=== PATIENT | female | born 1960 | race Caucasian/White ===

== ENCOUNTER 2019-06-02 18:44 | Emergency (ER) | payer BC ==
[~2019-06-02] VITALS: Ht 154.9 cm; Wt 76.4 kg
[2019-06-02] MEDS ORDERED: LIPI20TA PO (18:55)
[2019-06-02] MEDS ORDERED: RANI15TA PO (18:56)
[2019-06-02] MEDS ORDERED: MORPHINE 4 MG/ML 1ML VIAL/SYRINGE (J2270) IV ONE (19:00)
--- NOTE | 2019-06-02 20:36 | REPVR ---
PROCEDURE INFORMATION: Exam: XR Left Knee Exam date and time: 06/02/2019 6:54 PM Clinical history: 58 years old, female; Pain; Left; Patient HX: Fell on knee and heard a "pop"; Additional info: Trauma TECHNIQUE: Imaging protocol: XR Left knee. Views: 4 or more views. COMPARISON: No relevant prior studies available. FINDINGS: Bones/joints: Acute fracture of the lateral tibial plateau. Osteoporosis. Suprapatellar joint effusion with a fat fluid level consistent with a fracture. Soft tissues: Normal. IMPRESSION: 1. Acute fracture of the lateral tibial plateau. 2. Suprapatellar joint effusion with a fat fluid level consistent with a fracture. Electronically signed by: Jayson Westfall On 06/02/2019 20:35:57 PM
--- NOTE | 2019-06-02 21:41 | REPVR ---
PROCEDURE INFORMATION: Exam: CT Left Lower Extremity Without Contrast, Knee Exam date and time: 06/02/2019 9:04 PM Clinical history: 58 years old, female; Injury or trauma; Fall; Initial encounter; Fracture, traumatic; Other: Plataue; Tibia; Left; Additional info: Eval tib plateau FX per ortho TECHNIQUE: Imaging protocol: CT of the Left lower extremity without contrast was performed. Exam focused on the knee. Radiation optimization: All CT scans at this facility use at least one of these dose optimization techniques: automated exposure control; mA and/or kV adjustment per patient size (includes targeted exams where dose is matched to clinical indication); or iterative reconstruction. COMPARISON: CR Knee, complete LEFT 06/02/2019 7:40 PM FINDINGS: Bones/joints: Impaction fracture of the lateral tibial plateau with greatest impaction in the central tibial plateau. There is depression of articular surfaces of approximately 6 mm with fracture lines radiating to the periphery anteriorly, posteriorly and laterally. Fracture lines extend into the lateral aspect of the tibial spines. There is only very slight offset of the fractures involving the lateral tibial metaphysis. Lipohemarthrosis of the knee joint. Soft tissues: Normal. IMPRESSION: 1. Intra-articular impaction fracture of the central lateral tibial plateau with depression of articular fragments up to 6 mm. Very slightly displaced fracture lines extend to the periphery in the lateral tibial metaphysis. 2. Moderate lipohemarthrosis of the knee joint. Electronically signed by: Shawn Diamond On 06/02/2019 21:40:46 PM
[2019-06-02] MEDS ORDERED: OXYCODONE/APAP 5MG/325MG(BULK FOR ED) 1 TABLET PO ONE (21:45)
[2019-06-02] MEDS ORDERED: PERC5TAB12 PO (21:55)
[2019-06-02] MEDS ORDERED: NS 1,000 ML IV SCH (22:04)
[2019-06-02] MEDS ORDERED: ONDANSETRON 4MG/2ML VIAL (J2405) IV ONE (22:15)
[2019-06-02 22:21] LABS: BASO # 0.1 10^3/uL (0.0-0.2); BASO % 0.4 % (0.0-1.0); EOS % 0.2 % (0.0-3.0); HEMATOCRIT 42.7 % (36.0-47.0); LYMPH # 2.8 10^3/uL (1.5-5.0); LYMPH % 19.4 % (24.0-44.0); MEAN CORPUSCULAR HEMOGLOBIN 30.4 pg (27.0-33.0); MEAN CORPUSCULAR HGB CONC 32.8 g/dl (32.0-36.5); MEAN CORPUSCULAR VOLUME 92.8 fl (80.0-96.0); MONO # 0.8 10^3/uL (0.0-0.8); MONO % 5.6 % (0.0-5.0); NEUTROPHILS # 10.5 10^3/uL (1.5-8.5); PLATELET COUNT, AUTOMATED 225 10^3/uL (150-450); WHITE BLOOD COUNT 14.3 10^3/uL (4.0-10.0)
[2019-06-02 22:51] LABS: BLOOD UREA NITROGEN 10 MG/DL (7-18); CALCIUM LEVEL 8.9 MG/DL (8.5-10.1); CARBON DIOXIDE LEVEL 25 MEQ/L (21-32); CHLORIDE LEVEL 105 MEQ/L (98-107); CK-MB VALUE MASS 1.2 NG/ML (<3.6); CPK CREATINE PHOSPHOKINASE 229 U/L (26-192); CREATININE FOR GFR 0.95 MG/DL (0.55-1.30); GLOMERULAR FILTRATION RATE > 60.0 (>51); GLUCOSE, FASTING 122 MG/DL (70-100); MAGNESIUM LEVEL 1.9 MG/DL (1.8-2.4); MB/CK RELATIVE INDEX 0.52 (< OR =4); POTASSIUM SERUM 3.5 MEQ/L (3.5-5.1); SODIUM LEVEL 139 MEQ/L (136-145); TROPONIN I < 0.02 NG/ML (< 0.10)
[2019-06-02 23:22] VITALS: BP 157/90
--- NOTE | 2019-06-03 01:40 | REP ---
Clinical: Trauma. Technique: AP and lateral views of the left tibia / fibula. Findings: Lateral view best demonstrates soft tissue swelling with joint effusion and fat-fluid level. There is evidence for lateral tibial plateau fracture. Remainder examination appears normal. Impression: Tibial plateau fracture with swelling and effusion. Electronically Signed by Pedro Bhakta MD 06/03/2019 01:31 A
--- NOTE | 2019-06-03 16:28 | ECGEPIP ---
[facility] - ED Test Date: 2019-06-02 Pat Name: SANTY INTERIANO Department: Room: - Gender: Female Flight Operations Specialist: terrence varner : 1960 Requested By: KELLIE Barbour Order Number: [id number] Reading MD: Holly Santiago Measurements Intervals [place]lap Rate: 84 P: 46 ME: 174 QRS: -17 QRSD: 94 T: -21 QT: 427 QTc: 505 Interpretive Statements SINUS RHYTHM INCOMPLETE RIGHT BUNDLE BRANCH BLOCK MODERATE VOLTAGE CRITERIA FOR LVH, CONSIDER NORMAL VARIANT NONSPECIFIC T-WAVE ABNORMALITY NO PRIOR Electronically Signed on 06-03-2019 16:28:36 EST by Holly Santiago
== END 2019-06-02 23:51 | disposition home or self-care (01) ==
LOC: M ED 18:44
DX: S82.142A Displaced bicondylar fracture of left tibia, initial encounter for closed fracture (principal); S82.102A Unspecified fracture of upper end of left tibia, initial encounter for closed fracture; W01.0XXA Fall on same level from slipping, tripping and stumbling without subsequent striking against object, initial encounter; Y92.018 Other place in single-family (private) house as the place of occurrence of the external cause; M25.062 Hemarthrosis, left knee; I45.19 Other right bundle-branch block; Z91.013 Allergy to seafood; Z79.899 Other long term (current) drug therapy
CPT/HCPCS: 73564; 73590; 73700; 80048; 82550; 82553; 83735; 84439; 84443; 84484; 85025; 93005; 93041; 94760; 96374; 96375; 99285; J2270; J2405

== ENCOUNTER 2019-06-07 10:09 | Day surgery (SDC) | payer BC ==
[~2019-06-07] VITALS: Ht 154.9 cm; Wt 77.9 kg
[~2019-06-07 10:09] MED LIST: LIDOCAINE 1% MDV 20ML VIAL SQ PRN; LIPI20TA PO; LR 1,000 ML IV ONE; PERC5TAB12 PO; RANI15TA PO; ceFAZolin SOD 2 GM in IV 1 EA IV ONE
[2019-06-07] MEDS ORDERED: ASPI325T57 PO (11:35)
[2019-06-07] MEDS ORDERED: MIDAZOLAM INJ 2 MG/2 ML VIAL (J2250) As Ordered ONE ×2 (13:19→13:27)
[2019-06-07] MEDS ORDERED: BUPIVACAINE HCL 0.25% 10 ML VIAL As Ordered ONE (13:19)
[2019-06-07] MEDS ORDERED: fentaNYL 100 MCG/2 ML INJECTION (J3010) As Ordered ONE ×3 (13:19→15:11)
[2019-06-07] MEDS ORDERED: LIDOCAINE PRES-FREE 2% 10ML AMP As Ordered ONE (13:26)
[2019-06-07] MEDS ORDERED: PROPOFOL 200 MG/20 ML VIAL As Ordered ONE (13:26)
[2019-06-07] MEDS ORDERED: LABETALOL HCL 100 MG/20 ML VIAL As Ordered ONE ×2 (15:34→17:27)
[2019-06-07] MEDS ORDERED: HYDROmorphone HCL 2 MG/ML 1ML VIAL (J1170) As Ordered ONE (15:52)
[2019-06-07] MEDS ORDERED: fentaNYL 100 MCG/2 ML INJECTION (J3010) IV PRN (16:45)
[2019-06-07] MEDS ORDERED: ONDANSETRON 4MG/2ML VIAL (J2405) IV PRN (16:45)
[2019-06-07] MEDS ORDERED: HYDROMORPHONE HCL 0.5 MG/ 0.5 ML SYRINGE (J1170 PER 1) IV PRN (16:45)
[2019-06-07] MEDS ORDERED: oxyCODONE 5MG TAB PO PRN ×3 (16:45→17:00)
[2019-06-07] MEDS ORDERED: METOCLOPRAMIDE INJ 10MG/2ML VIAL (J2765) IV PRN (16:45)
[2019-06-07] MEDS ORDERED: LR 1,000 ML IV SCH (16:45)
--- NOTE | 2019-06-07 16:46 | REP ---
Left knee series: Four views. History: Left tibial plateau fracture. Intraoperative imaging. 3 minutes 22 seconds of fluoroscopy time is reported. Findings: A sequence of four last image hold fluoroscopically obtained spot radiographs of the knee document open reduction internal fixation for tibial plateau fracture. Electronically Signed by Jaron Sumner MD 06/07/2019 04:37 P
[2019-06-07] MEDS ORDERED: MORPHINE 2 MG/ML 1ML VIAL (J2270) IV PRN (17:00)
[2019-06-07 17:30] VITALS: BP 175/95
[2019-06-07] MEDS ORDERED: LABETALOL HCL 100 MG/20 ML VIAL IV SCH (18:00)
[2019-06-07 18:40] VITALS: BP 170/88
--- NOTE | 2019-06-08 08:36 | RO ---
DATE OF PROCEDURE: 06/07/2019 PREOPERATIVE DIAGNOSIS: Left tibial plateau split depression fracture. POSTOPERATIVE DIAGNOSIS: Left lateral tibial plateau split depression fracture with meniscal tear. PROCEDURES: 1. Open reduction internal fixation of the left lateral split depression fracture. 2. Meniscal repair. 3. Arthrotomy of the knee. TOURNIQUET TIME: 83 minutes. ANESTHESIA: General. COMPLICATIONS: None. PREOPERATIVE ANTIBIOTICS: 2 grams Ancef. SURGEON: Dr. Henri Ramos WAX PATTERN ASSEMBLER: None. INDICATIONS: This is a 58-year-old female who suffered a split tibial plateau fracture after taking a fall. Due to the increased intercondylar width and depression of the joints I believe the patient would be best served by having open reduction internal fixation to give her a stable knee joint and best option going forward. The patient expressed understanding and agreement with all of the risks including but not limited to infection, damage to surrounding structures, malunion and nonunion and posttraumatic arthritis and wished to proceed. OPERATIVE DESCRIPTION: The patient was brought back to the operating room in the supine position and underwent general anesthesia at which point we prepped and draped left leg and then we had a time out confirming site, side and surgery and once all in agreement we elevated the tourniquet up to 250 mmHg. We made a curvilinear incision along the proximal tibial crest over the lateral femoral condyle. We sharply dissected through subcutaneous tissue and careful attention to superficial bleeders. We identified the fascia, the anterior compartment over the distal incision and incised it one centimeter from the tibial crest and elevated the anterior compartment off the lateral tibia continuing up proximally and elevated sheath anterior and posterior and then split the IT band aligned with it fibers along the joints a layer from the joint capsule. At which point we identified the joint capsule. This is when we made our arthrotomy just below the meniscus. This was done in order to irrigated and debride all wounds loose bodies and fracture fragments within the joint along with as well as to assess for meniscal tear. At this moment we identified a lateral base peripheral meniscal tear. This was repaired with an 0 Prolene in an outside in repair technique. This was done and the elevated with the rest of the joint capsule to examine the fracture depression. We were able to identify significant depression within the joint. At which point we turned our attention to the lateral split fracture line. This was identified and booked open. This allowed access to the joint depression portion of the fracture using a combination of osteotomes and bone clamps. We elevated the joint line to its near anatomic position confirmed on AP, lateral, C-ARM views. Once this was done we used mini K-wires 16 K-wires to hold the fracture in place. We then collected our standard lateral tibial plateau plates and placed it on the lateral tibia using a periarticular reduction clamp, we made a stab incision on the medial aspect of the tibial plateau to allow compression of the intercondylar width using the large periarticular reduction clamp off the plates. We were happy on AP and lateral x-rays demonstrating near anatomic intercondylar width. We then utilized this to place our cortical screws to hold this reduction in place and placed three cortical screws in the shaft at which point we were able to remove that periarticular reduction plate and maintained our decreased intercondylar width in near anatomic status. We then used once again the bone tamp and osteotomes to help elevate the joint and place additional K-wires, two 16 K-wires through the proximal holes in the plate. Once this was adequately done we placed four locking screws in the most proximal aspect of the plate to hold our reduction in place due to it being about a half centimeter from the joint surface we made a decision to retain our K-wires. These were pulled back and reimpacted into place to stay as a permanent implant. Once this was done we used 5 mL of Norian injected into the cavity beneath the depressed segment of the articular cartilage to help maintain our reduction after we leave the OR. Once this was done we placed one additional locking screw as a strut through the cement and into the medial condyle. At which point we took final AP and lateral x-rays and we were very happy with our reduction and fixation at which point we irrigated the wound thoroughly. We closed our arthrotomy with 0 Vicryl. We closed the IT band and anterior compartment with 0 Vicryl as well. The lateral meniscal repair was already repaired with 0 Prolene. We then irrigated the wound once more and subcutaneous tissue and closed subcutaneous tissue with 2-2 Vicryl and skin with zaina. We then dressed the wound with adaptic gauze and Ioban and a sterile web roll and an SHAUN from the foot proximally. At this point the tourniquet was let down at approximately 83 minutes. Patient was then extubated and then taken to the postanesthesia care unit in stable condition. POSTOPERATIVE PLAN: Patient will work on pain control and range of motion. In the office we will reassess her incision in approximately 2 weeks for staple removal and decide on the need for physical therapy at that time to bring her hinged knee brace at that time. We will most likely leave it unlocked so she can continue to work on range of motion. Patient expressed understanding and agreement with this plan.
== END 2019-06-07 18:55 | disposition home or self-care (01) ==
LOC: M SDC 10:09
PROVIDERS: ATTEND Orthopaedic Surgery Hand Surgery
DX: S82.192A Other fracture of upper end of left tibia, initial encounter for closed fracture (principal); X58.XXXA Exposure to other specified factors, initial encounter; Y92.89 Other specified places as the place of occurrence of the external cause; E78.00 Pure hypercholesterolemia, unspecified; K21.9 Gastro-esophageal reflux disease without esophagitis; M48.00 Spinal stenosis, site unspecified; Z91.013 Allergy to seafood; Z79.899 Other long term (current) drug therapy; Z79.891 Long term (current) use of opiate analgesic
CPT/HCPCS: 27403; 27535; 36415; 76000; 86850; 86900; 86901; C1713; C1762; J0690; J1170; J2250; J3010

== ENCOUNTER → 2023-05-02 | Outpatient (CLI) | payer BC, OTHER ==
[~2023-05-02] MED LIST changes: +ASPI325T57 PO; +ATOR40TA75 PO; +CHEL50TA3 PO; +CHOL50002 PO; +FAMO-67 PO; -LIDOCAINE 1% MDV 20ML VIAL SQ PRN; +LISI10TA22 PO; -LR 1,000 ML IV ONE; +VITA100065 PO; +ZINC30CA PO; -ceFAZolin SOD 2 GM in IV 1 EA IV ONE
== END ==
LOC: M SOG 07:52
PROVIDERS: ATTEND Physician Assistant
DX: M79.644 Pain in right finger(s) (principal)

== ENCOUNTER 2023-06-05 06:07 | Day surgery (SDC) | payer OTHER ==
[~2023-06-05] VITALS: Ht 154.9 cm; Wt 75.1 kg
[~2023-06-05 06:07] MED LIST changes: +LIDOCAINE W/EPINEPHRINE 1% 20ML VIAL XX ONE; +SODIUM BICARBONATE 8.4% INJ 50MEQ 50ML VIAL XX ONE
[2023-06-05] MEDS ORDERED: BACITRACIN OINTMENT 30GM TUBE As Ordered ONE (07:55)
[2023-06-05 08:00] VITALS: BP 137/85; TEMP 97.2; O2SAT 96
== END 2023-06-05 08:15 | disposition home or self-care (01) ==
LOC: M SDC 06:07
PROVIDERS: ATTEND Orthopaedic Surgery Hand Surgery
DX: M65.351 Trigger finger, right little finger (principal); I10 Essential (primary) hypertension; E78.00 Pure hypercholesterolemia, unspecified; K21.9 Gastro-esophageal reflux disease without esophagitis; Z79.899 Other long term (current) drug therapy; Z91.013 Allergy to seafood

== ENCOUNTER → 2024-03-18 | Outpatient (CLI) | payer OTHER ==
[~2024-03-18] MED LIST changes: -LIDOCAINE W/EPINEPHRINE 1% 20ML VIAL XX ONE; -SODIUM BICARBONATE 8.4% INJ 50MEQ 50ML VIAL XX ONE
== END ==
LOC: M SOG 07:56
PROVIDERS: ATTEND Physician Assistant
DX: M25.561 Pain in right knee (principal)

== ENCOUNTER 2025-07-07 08:35 | Day surgery (SDC) | payer MEDICARE, OTHER ==
[~2025-07-07] VITALS: Ht 154.9 cm; Wt 65.7 kg
[~2025-07-07 08:35] MED LIST changes: -FAMO-67 PO; +LIDOCAINE W/EPINEPHrine 1% 20 ML VIAL XX ONE; +PHEN15CA6 PO; +SODIUM BICARBONATE 8.4% INJ 50MEQ/50ML VIAL XX ONE; +TOPA1TAB PO; +[UNRECOGNIZED DRUG - CODE] PO
[2025-07-07 11:50] VITALS: BP 121/70; TEMP 98.1; O2SAT 97
== END 2025-07-07 12:09 | disposition home or self-care (01) ==
LOC: M SDC 08:35
PROVIDERS: ATTEND Orthopaedic Surgery Hand Surgery
DX: M65.341 Trigger finger, right ring finger (principal)